=== PATIENT | female | born 1990 | race Caucasian/White ===

== ENCOUNTER 2020-06-24 14:52 | Day surgery (SDC) | payer OTHER ==
[2020-06-24 17:21] VITALS: BP 114/63; TEMP 98.6
[2020-06-24 17:22] VITALS: BMI 34.0
[2020-06-24] MEDS ORDERED: hydrALAZINE 20 MG/ML VIAL SLOW IVP PRN (17:38)
[2020-06-24] MEDS ORDERED: Lactated Ringer's 1,000 ML IV SCH (17:45)
--- NOTE | 2020-06-24 18:17 | HP ---
TIME OF EVALUATION: 173, it is now 1742. LOCATION: Labor and Delivery Triage. This is a patient of an outside physician in [place], [place]. REASON FOR EVALUATION/CHIEF COMPLAINT: Status post fall while walking at approximately 2:30 p.m. HISTORY OF PRESENT ILLNESS: This is a 30-year-old G3, P2 with 2 prior vaginal deliveries with an EDC of August 28, 2020, putting her at 30 weeks and 5 days today. The patient states that she was walking at [facility] when she fell/tripped and fell face forward. She denies head trauma, gush of fluid or vaginal bleeding. She has good movement. She states that she mildly hit her abdomen on the way down. She has no contractions. She has no loss of consciousness or visual changes. Again, she has good movement. REVIEW OF SYSTEMS: She has no loss of consciousness. No headache. No visual changes. No contractions. No leakage of fluid. No vaginal bleeding. She does have some mild injury to her bilateral upper extremities. PAST MEDICAL HISTORY: Significant for asthma with no recent exacerbations. She does not take any medicine for this. She also has a history of depression and she takes Zoloft. She also has a history of GERD. MEDICATIONS: Include: 1. Zoloft. 2. vitamin. 3. Omeprazole. ALLERGIES: NONE. PAST OB HISTORY: Significant for 2 previous vaginal deliveries. SURGICAL HISTORY: Noncontributory. SOCIAL HISTORY: Negative for alcohol, tobacco, and drug use. FAMILY HISTORY: Noncontributory for this issue. PHYSICAL EXAMINATION: VITAL SIGNS: Show a blood pressure of 114/63, pulse of 87, respirations of 16, temperature is 98.6. GENERAL: She is in no acute distress. ABDOMEN: Soft and nontender. There are no palpable contractions. There are no gross contusions on the abdomen. PELVIC: Exam is deferred at this time. MONITORING: External monitor shows heart rate tracing that is reactive for gestational age with a baseline around 130s to 140s. There is moderate variability. There are no contractions. LABORATORY DATA: Laboratories ordered. I have ordered a type and Rh, and I have ordered 1 L of LR for hydration. ASSESSMENT: This is a multigravida, G3, P2, at 30 weeks and 5 days, status post fall at 2:30 p.m., which is now almost 4 hours ago. She has mild abdominal injury as she fell forward, but no evidence of labor or abruption clinically at this time. PLAN: 1. I have ordered a type and Rh. She does not know her blood type, although she states that she has never received RhoGAM. 2. No evidence of abruption clinically at this time. 3. There is no indication for ultrasound at this time as the nonstress test is reactive for gestational age. 4. We will give her RhoGAM if she is Rh negative. 5. Monitoring for at least 4 hours from the time of the event, and that was at 2:30, which makes it up until about 6:30 p.m. or so. 6. She has been cleared from the ER. Job ID: [id number]
--- NOTE | 2020-06-24 18:21 | PRG ---
DATE OF SERVICE: 06/24/2020 HISTORY AND PHYSICAL ADDENDUM: In brief, I have seen the patient at bedside. I forgot to mention in my H and P that she does have a mild contusion to her head just above her right eyebrow. This was like a small abrasion. She states that she thinks she scratched herself as she fell, but has no loss of consciousness and remember she has already been cleared by the emergency department. She also does state that she is being evaluated for possible gallstones and she has a followup with her physician for an ultrasound with that, but she does not have any issues regarding that at this time. Also, as a history and physical addendum, it is important to know that she is currently on amoxicillin because of strep throat as a diagnosis, and she has also been treated for yeast infection because of that antibiotics during this . Again, I discussed with the patient the planned observation of at least 4 hours from the incident. She is clinically stable and I do not currently have any evidence or suspicion of labor or abruption at this time, but we will continue to monitor. I did explain to her the reasoning for a type and Rh, which is for our documentation and RhoGAM if necessary. Job ID: [id number]
--- NOTE | 2020-06-24 18:31 | PDOC.BPN ---
- Brief Progress Note Blood type O pos NST reactive
== END 2020-06-24 18:42 | disposition home or self-care (01) ==
LOC: ERS 14:52 → L&D/OP 16:40
PROVIDERS: ATTEND Obstetrics & Gynecology
DX: O9A.213 Injury, poisoning and certain other consequences of external causes complicating pregnancy, third trimester (principal); S00.11XA Contusion of right eyelid and periocular area, initial encounter; O99.513 Diseases of the respiratory system complicating pregnancy, third trimester; J45.909 Unspecified asthma, uncomplicated; O99.343 Other mental disorders complicating pregnancy, third trimester; F32.9 Major depressive disorder, single episode, unspecified; O99.613 Diseases of the digestive system complicating pregnancy, third trimester; K21.9 Gastro-esophageal reflux disease without esophagitis; Z3A.30 30 weeks gestation of pregnancy; Z79.899 Other long term (current) drug therapy; W01.0XXA Fall on same level from slipping, tripping and stumbling without subsequent striking against object, initial encounter; Y92.831 Amusement park as the place of occurrence of the external cause; Z86.19 Personal history of other infectious and parasitic diseases
CPT/HCPCS: 86900; 86901; 99282